=== PATIENT | male | born 1955 | race Caucasian/White ===

== ENCOUNTER 2017-10-24 05:43 | Inpatient (IN) | payer OTHER ==
[2017-10-24] VITALS (22 sets, daily range): BP systolic 104–172; BP diastolic 67–104; PULSE 63–92; RESP 14–24; TEMP 97.9–98.9; O2SAT 93–98
[~2017-10-24] VITALS: Ht 177.8 cm; Wt 112.7 kg
[~2017-10-24 05:43] MED LIST: AMLO10TA2 PO; ASPI1TAB57 PO; CPAP MASK; Glucometer; LEVO100T5 PO; LIPI20TA PO; METF500T PO; PANT40TA3 PO; TEST3GEL TOPICAL; TYLE325T PO; VENTAER INH; [UNRECOGNIZED DRUG - OTHER]; lancets
--- NOTE | 2017-10-24 05:59 | PD ---
HPI Chief Complaint: Chest Pain Time Seen by Provider: 05:51 Travel History International Travel<30 days: No Contact w/Intl Traveler<30days: No Traveled to known affect area: No History of Present Illness HPI 62-year-old male complains of chest pain. Patient states that the pain started 2 days ago. Patient states that the pain was intermittent 2 days ago and became constant since yesterday. Patient stated pain aching pain across anterior chest with radiation to the right shoulder. Patient states that the pain is worse with exertion 2 days ago however has been constant without changing since yesterday. Patient denies any nausea or diaphoresis. Patient denies palpitation. Patient denies any coughing congestion fever chills. Patient has history of CAD status post stent placement in 2004. Patient has history hypertension, diabetes, edema, hypothyroidism, Sandoval's esophagus, sleep apnea. Patient quit smoking 2004. Patient denies family history of heart disease. On a scale from 1-10 the pain is a 3. Patient took aspirin 81 mg last night. Patient had small amount of coffee this morning. Patient had normal nuclear stress test in 2013. PFSH Past Medical History Depression: Yes Heart Rhythm Problems: Yes Cancer: No Cardiac Catheterization: Yes Cardiovascular Problems: No High Cholesterol: Yes Diabetes: Yes Patient Takes Glucophage: Yes Diminished Hearing: No Endocrine: Yes Gastrointestinal Disorders: Yes (BARRETTS) Genitourinary: No Hepatitis: No Hiatal Hernia: No Hypertension: Yes Immune Disorder: No Musculoskeletal: No Neurologic: No Psychiatric: No Reproductive: Yes (vasectomy reversal) Respiratory: Yes (SLEEP APNEA) Immunizations Current: Yes Myocardial Infarction: Yes (2005) Thyroid Disease: Yes Past Surgical History Abdominal Surgery: No Cardiac Surgery: No Coronary Artery Bypass Graft: No Ear Surgery: No Endocrine Surgery: No Eye Surgery: No Genitourinary Surgery: Yes (REVERSE VASECTOMY) Oral Surgery: No Thoracic Surgery: No Tonsillectomy: Yes Social History Alcohol Use: Yes (one glass of wine per night) Tobacco Use: No Substance Use: No Allergies-Medications (Allergen,Severity, Reaction): Coded Allergies: latex (Unverified Allergy, Mild, Itching, 02/15/17) Reported Meds & Prescriptions Reported Meds & Active Scripts Active [CPAP mask] Use nightly [lancets] [Test strip] U BID Test in the morning before breakfast and two hours after biggest meal. [Glucometer] [Cpap mask] Provide Cpap mask with trap and tubing. Reported Testosterone Topical (Testosterone) 1 % Gel 12.5 Mg TOPICAL DAILY Levothyroxine (Levothyroxine Sodium) 100 Mcg Tab 100 Mcg PO DAILY Lipitor (Atorvastatin Calcium) 20 Mg Tab 20 Mg PO HS Tylenol (Acetaminophen) 325 Mg Tab 650 Mg PO Q6H Aspirin 81 (Aspirin) 81 Mg Tabdr 81 Mg PO DAILY Pantoprazole (Pantoprazole Sodium) 40 Mg Tab 40 Mg PO DAILY Metformin (Metformin HCl) 500 Mg Tab 500 Mg PO BIDPC With meals Ventolin Hfa 18 GM Inh (Albuterol Sulfate) 90 Mcg/Act Aer 1 Puff INH Q6HR PRN Amlodipine (Amlodipine Besylate) 10 Mg Tab 10 Mg PO DAILY Review of Systems General / Constitutional: No: Fever Eyes: No: Visual changes HENT: No: Headaches Cardiovascular: Positive: Chest Pain or Discomfort Respiratory: No: Shortness of Breath Gastrointestinal: No: Abdominal Pain Genitourinary: No: Dysuria Musculoskeletal: No: Pain Skin: No Rash Neurologic: No: Weakness Psychiatric: No: Depression Endocrine: No: Polydipsia Hematologic/Lymphatic: No: Easy Bruising Physical Exam Narrative GENERAL: Well-nourished, well-developed patient. SKIN: Focused skin assessment warm/dry. HEAD: Normocephalic. EYES: No scleral icterus. No injection or drainage. NECK: Supple, trachea midline. No JVD or lymphadenopathy. CARDIOVASCULAR: Regular rate and rhythm without murmurs, gallops, or rubs. RESPIRATORY: Breath sounds equal bilaterally. No accessory muscle use. GASTROINTESTINAL: Abdomen soft, non-tender, nondistended. MUSCULOSKELETAL: No cyanosis, or edema. BACK: Nontender without obvious deformity. No CVA tenderness. Neurologic exam normal. Data Data Last Documented VS Vital Signs Date Time Temp Pulse Resp B/P (MAP) Pulse Ox O2 Delivery O2 Flow Rate FiO2 10/24/17 05:54 24 97 Room Air 10/24/17 05:51 98.3 74 172/104 (126) Orders Orders Electrocardiogram (10/24/17 05:52) Complete Blood Count With Diff (10/24/17 05:52) Comprehensive Metabolic Panel (10/24/17 05:52) Creatine Kinase (Cpk) (10/24/17 05:52) Troponin I (10/24/17 05:52) Prothrombin Time / Inr (Pt) (10/24/17 05:52) Act Partial Throm Time (Ptt) (10/24/17 05:52) Chest, Single Ap (10/24/17 05:52) Iv Access Insert/Monitor (10/24/17 05:52) Ecg Monitoring (10/24/17 05:52) Oximetry (10/24/17 05:52) Aspirin Chew (Aspirin Chew) (10/24/17 06:00) Labs Laboratory Tests Test 10/24/17 05:50 White Blood Count 7.7 TH/MM3 Red Blood Count 5.09 MIL/MM3 Hemoglobin 16.3 GM/DL Hematocrit 46.9 % Mean Corpuscular Volume 92.1 FL Mean Corpuscular Hemoglobin 32.1 PG Mean Corpuscular Hemoglobin Concent 34.9 % Red Cell Distribution Width 13.7 % Platelet Count 190 TH/MM3 Mean Platelet Volume 10.0 FL Neutrophils (%) (Auto) 54.6 % Lymphocytes (%) (Auto) 32.6 % Monocytes (%) (Auto) 8.8 % Eosinophils (%) (Auto) 3.2 % Basophils (%) (Auto) 0.8 % Neutrophils # (Auto) 4.2 TH/MM3 Lymphocytes # (Auto) 2.5 TH/MM3 Monocytes # (Auto) 0.7 TH/MM3 Eosinophils # (Auto) 0.2 TH/MM3 Basophils # (Auto) 0.1 TH/MM3 CBC Comment DIFF FINAL Differential Comment Prothrombin Time 10.3 SEC Prothromb Time International Ratio 1.0 RATIO Activated Partial Thromboplast Time 24.5 SEC MDM Medical Decision Making Medical Screen Exam Complete: Yes Emergency Medical Condition: Yes Interpretation(s) EKG shows sinus rhythm nonspecific ST-T wave change. Last Impressions Chest X-Ray 10/24/17 0552 Signed Impressions: Service Date/Time: Tuesday, October 24, 2017 05:57 - CONCLUSION: 1. Minimal basilar atelectasis. No consolidation or significant effusion. Sunny Sanchez MD 6:28 AM. CBC within normal limits. Differential Diagnosis Differential diagnosis including angina, NM, PE, pneumothorax. Narrative Course 62-year-old male with chest pain. History of CAD status post stent placement. Aspirin 162 mg p.o. given. Luke Starks MD Oct 24, 2017 05:59
[2017-10-24] MEDS ORDERED: ASPIRIN 81 MG CHEW TAB CHEW ONE (06:00)
[2017-10-24 06:11] LABS: AUTOMATED NEUTROPHIL # 4.2 TH/MM3 (1.8-7.7); BASOPHIL # 0.1 TH/MM3 (0-0.2); BASOPHIL % 0.8 % (0.0-2.0); EOSINOPHIL # 0.2 TH/MM3 (0-0.4); EOSINOPHIL % 3.2 % (0.0-4.0); HEMATOCRIT 46.9 % (39.0-51.0); HEMOGLOBIN 16.3 GM/DL (13.0-17.0); LYMPH % 32.6 % (9.0-44.0); LYMPHOCYTE # 2.5 TH/MM3 (1.0-4.8); MEAN CELL VOLUME 92.1 FL (80.0-100.0); MEAN CORPUSCULAR HEMOGLOBIN 32.1 PG (27.0-34.0); MEAN CORPUSCULAR HGB CONC 34.9 % (32.0-36.0); MONO % 8.8 % (0.0-8.0); MONOCYTE # 0.7 TH/MM3 (0-0.9); NEUT % 54.6 % (16.0-70.0); PLATELET COUNT 190 TH/MM3 (150-450); RED BLOOD COUNT 5.09 MIL/MM3 (4.50-5.90); RED CELL DISTRIBUTION WIDTH 13.7 % (11.6-17.2); WHITE BLOOD COUNT 7.7 TH/MM3 (4.0-11.0)
--- NOTE | 2017-10-24 06:14 | RADRPT ---
EXAM DATE/TIME: 10/24/2017 05:57 [facility] COMPARISON: No previous studies available for comparison. INDICATIONS : Chest pain in middle of chest, belching, only slightly short of breath MEDICAL HISTORY : Cardiovascular disease. 95% blocked LAD SURGICAL HISTORY : Coronary artery stent. Cholecystectomy. ENCOUNTER: Initial ACUITY: 1 day PAIN SCORE: 7/10 LOCATION: Bilateral chest FINDINGS: A single view of the chest demonstrates the lungs to be symmetrically aerated without evidence of mas s, infiltrate or effusion. Mild basilar atelectasis. The cardiomediastinal contours are unremarkable. Osseous structures are intact. CONCLUSION: 1. Minimal basilar atelectasis. No consolidation or significant effusion. Sunny Sanchez MD on October 24, 2017 at 6:09 Board Certified Radiologist. This report was verified electronically.
[2017-10-24 06:22] LABS: PROTHROMBIN TIME - PATIENT 10.3 SEC (9.8-11.6)
[2017-10-24 06:33] LABS: AST (GOT) 25 U/L (15-37); BICARBONATE 28.3 MEQ/L (21.0-32.0); BLOOD UREA NITROGEN 17 MG/DL (7-18); CHLORIDE 104 MEQ/L (98-107); CREATININE 1.21 MG/DL (0.60-1.30); GLOMERULAR FILTRATION RATE 61 ML/MIN (>89); GLUCOSE,RANDOM 161 MG/DL (74-106); SODIUM (NA) 140 MEQ/L (136-145)
[2017-10-24 06:34] LABS: ALT (GPT) 44 U/L (12-78)
[2017-10-24 06:37] LABS: ALKALINE PHOSPHATASE 116 U/L (45-117); TOTAL BILIRUBIN ADULT 0.6 MG/DL (0.2-1.0); TOTAL PROTEIN 7.5 GM/DL (6.4-8.2); TROPONIN I 0.09 NG/ML (0.02-0.05)
[2017-10-24] MEDS ORDERED: HEPARIN-D5W 25,000 U/250 ML 250 ML IV PRN (07:00)
[2017-10-24] MEDS ORDERED: NITROGLYCERIN 2% OINT 1 GM PACKET TOPICAL ONE (07:00)
[2017-10-24] MEDS ORDERED: HEPARIN SODIUM - IV 10,000 UNITS/10 ML VIAL IV ONE (07:00)
[2017-10-24] MEDS ORDERED: SODIUM CHLOR 0.9% 1000 ML INJ 1,000 ML IV SCH (07:15)
--- NOTE | 2017-10-24 07:46 | PD.CONS ---
HPI Consult Requested By Primary Care Physician Stepan Le MD History of Present Illness 62-year-old male with a past medical history of CAD with LAD stent in 2004, HTN , HLD, DM, GERD/Sandoval's esophagus, [facility] on CPAP, hypothyroidism who presented for chest pain. The patient states he was chopping wood at his house on Tuesday, and while taking branches to the street he developed chest pain radiating down his right arm and shortness of breath. He reports that lately he has been having episodes with chest pain and shortness of breath lasting a few seconds with exertion. He states that for the past 2 days he has been having constant chest pain. He reports his original anginal equivalent in 2004 was just shortness of breath. He originally thought the pain was just gas from his Sandoval's esophagus but it did not improve after taking baking soda. The pain is currently relieved some after receiving aspirin, nitro patch, and heparin GTT in the ED. Initial EKG with no acute ischemic changes. Initial troponin 0.09. (Pa Melton) Review of Systems Negative except as stated in HPI (Pa Melton) Past Family Social History Allergies: Coded Allergies: latex (Unverified Allergy, Mild, Itching, 02/15/17) Past Medical History CAD with LAD stent in 2004, HTN, HLD, DM, GERD/Sandoval's esophagus, [facility] on CPAP , hypothyroidism Reported Medications Reported Meds & Active Scripts Active [CPAP mask] Use nightly [lancets] [Test strip] U BID Test in the morning before breakfast and two hours after biggest meal. [Glucometer] [Cpap mask] Provide Cpap mask with trap and tubing. Reported Testosterone Topical (Testosterone) 1 % Gel 12.5 Mg TOPICAL DAILY Levothyroxine (Levothyroxine Sodium) 100 Mcg Tab 100 Mcg PO DAILY Lipitor (Atorvastatin Calcium) 20 Mg Tab 20 Mg PO HS Tylenol (Acetaminophen) 325 Mg Tab 650 Mg PO Q6H Aspirin 81 (Aspirin) 81 Mg Tabdr 81 Mg PO DAILY Pantoprazole (Pantoprazole Sodium) 40 Mg Tab 40 Mg PO DAILY Metformin (Metformin HCl) 500 Mg Tab 500 Mg PO BIDPC With meals Ventolin Hfa 18 GM Inh (Albuterol Sulfate) 90 Mcg/Act Aer 1 Puff INH Q6HR PRN Amlodipine (Amlodipine Besylate) 10 Mg Tab 10 Mg PO DAILY Active Ordered Medications Current Medications Medications (Trade) Dose Ordered Sig/Jonathan Route Start Time Stop Time Status Last Admin Heparin Sodium/ Dextrose 250 ml @ 10 mls/hr TITRATE PRN IV 10/24/17 07:00 10/24/17 07:25 Sodium Chloride 1,000 ml @ 125 mls/hr Q8H IV 10/24/17 07:15 10/24/17 07:20 Family History Denies family history of heart disease Social History Quit smoking 2004 1 glass of wine per night (Pa Melton) Physical Exam Vital Signs Vital Signs Date Time Temp Pulse Resp B/P (MAP) Pulse Ox O2 Delivery O2 Flow Rate FiO2 10/24/17 07:14 86 20 147/94 (111) 97 Room Air 10/24/17 05:54 24 97 Room Air 10/24/17 05:51 98.3 74 24 172/104 (126) 97 Physical Exam GENERAL: Well-developed well-nourished. In no acute distress. NECK: No carotid bruits. No JVD. CARDIOVASCULAR: Regular rate and rhythm. No murmur appreciated. RESPIRATORY: No accessory muscle use. Clear to auscultation. Breath sounds equal bilaterally. MUSCULOSKELETAL: No clubbing or cyanosis. No edema. NEUROLOGICAL: Awake and alert. Normal speech. Laboratory Laboratory Tests Test 10/24/17 05:50 White Blood Count 7.7 Red Blood Count 5.09 Hemoglobin 16.3 Hematocrit 46.9 Mean Corpuscular Volume 92.1 Mean Corpuscular Hemoglobin 32.1 Mean Corpuscular Hemoglobin Concent 34.9 Red Cell Distribution Width 13.7 Platelet Count 190 Mean Platelet Volume 10.0 Neutrophils (%) (Auto) 54.6 Lymphocytes (%) (Auto) 32.6 Monocytes (%) (Auto) 8.8 Eosinophils (%) (Auto) 3.2 Basophils (%) (Auto) 0.8 Neutrophils # (Auto) 4.2 Lymphocytes # (Auto) 2.5 Monocytes # (Auto) 0.7 Eosinophils # (Auto) 0.2 Basophils # (Auto) 0.1 CBC Comment DIFF FINAL Differential Comment Prothrombin Time 10.3 Prothromb Time International Ratio 1.0 Activated Partial Thromboplast Time 24.5 Blood Urea Nitrogen 17 Creatinine 1.21 Random Glucose 161 Total Protein 7.5 Albumin 4.0 Calcium Level 9.0 Alkaline Phosphatase 116 Aspartate Amino Transf (AST/SGOT) 25 Alanine Aminotransferase (ALT/SGPT) 44 Total Bilirubin 0.6 Sodium Level 140 Potassium Level 3.9 Chloride Level 104 Carbon Dioxide Level 28.3 Anion Gap 8 Estimat Glomerular Filtration Rate 61 Total Creatine Kinase 334 Creatine Kinase MB 3.1 Creatine Kinase MB % 0.9 Troponin I 0.09 (Pa Melton) Result Diagram: 10/24/17 0550 10/24/17 0550 Imaging Last Impressions Chest X-Ray 10/24/17 0552 Signed Impressions: Service Date/Time: Tuesday, October 24, 2017 05:57 - CONCLUSION: 1. Minimal basilar atelectasis. No consolidation or significant effusion. Sunny Sanchez MD (Pa Melton) Assessment and Plan Assessment and Plan 62-year-old male with a past medical history of CAD with LAD stent in 2004, HTN , HLD, DM, GERD/Sandoval's esophagus, [facility] on CPAP, hypothyroidism who presented for chest pain. The patient states he was chopping wood at his house on Tuesday, and while taking branches to the street he developed chest pain and shortness of breath. He reports that lately he has been having episodes with chest pain and shortness of breath lasting a few seconds with exertion. He states that for the past 2 days he has been having constant chest pain. The pain is currently relieved some after receiving aspirin, nitro patch, and heparin GTT in the ED. Initial EKG with no acute ischemic changes. Initial troponin 0.09. NSTEMI: History of CAD with symptoms suggesting angina and elevation of troponin. Keep n.p.o. and plan for cardiac catheterization today. On heparin GTT. (Pa Melton) Assessment and Plan positive cardiac biomarkers high pretest likelihood of disease with risk factors and suggestive symptoms NPO C today (Edi Weiss MD) Pa Melton Oct 24, 2017 07:46 Edi Weiss MD Oct 24, 2017 08:11
[2017-10-24] MEDS ORDERED: ALBI1INJ SQ (08:27)
--- NOTE | 2017-10-24 08:49 | HHI.HP ---
HPI Service [facility] Hospitalists Primary Care Physician Stepan Le MD Admission Diagnosis NSTEMI Chief Complaint: Chest pain Travel History International Travel<30 Days: No Contact w/Intl Traveler <30 Da: No Traveled to Known Affected Are: No History of Present Illness Mr. Street is a 62 y/o WM with HTN, Hyperlipidemia, hx of CAD with LAD stent in 2004, Diabetes mellitus, GERD/Sandoval's esophagus, [facility] on CPAP, and hypothyroidism who presented to the ED at [facility] on 10/24/17 with complaints of chest pain. He reports that lately he has been having episodes intermittently of chest pain and shortness of breath with exertion which typically last a few seconds. The reports that he was chopping wood at his house on Tuesday, and while taking branches to the street, he developed chest pain radiating down his right arm with associated SOB. Since then he has been having constant chest pain. He reports that in 2004 when he had his cardiac cath and stent placement he was just shortness of breath at that time. He originally thought the pain was just gas but it did not improve after taking baking soda. The pain is currently relieved some after receiving aspirin, nitro patch, and heparin GTT in the ED. Initial EKG with no acute ischemic changes. Initial troponin 0.09. Pt has been seen by Cardiology and is planned for [facility] today. Review of Systems Constitutional: DENIES: Fever, Chills Respiratory: COMPLAINS OF: Shortness of breath, DENIES: Cough Cardiovascular: COMPLAINS OF: Chest pain, DENIES: Palpitations, Dyspnea on Exertion, Lower Extremity Edema Gastrointestinal: DENIES: Abdominal pain, Nausea, Vomiting Genitourinary: DENIES: Hematuria, Dysuria Musculoskeletal: DENIES: Neck pain Integumentary: DENIES: Rash Neurologic: DENIES: Headache Psychiatric: DENIES: Confusion Past Family Social History Past Medical History CAD with LAD stent in 2004 HTN Hyperlipidemia Diabetes Mellitus GERD/Sandoval's esophagus [facility] on CPAP Hypothyroidism Past Surgical History Cholecystectomy Vasectomy Tonsillectomy [facility] in 2004 Reported Medications Tanzeum 4-Pack Inj (Albiglutide) 30 Mg Pfpen 30 Mg SQ Q7D Testosterone Topical (Testosterone) 1 % Gel 12.5 Mg TOPICAL DAILY Levothyroxine (Levothyroxine Sodium) 100 Mcg Tab 100 Mcg PO DAILY Lipitor (Atorvastatin Calcium) 20 Mg Tab 20 Mg PO HS Tylenol (Acetaminophen) 325 Mg Tab 650 Mg PO Q6H Aspirin 81 (Aspirin) 81 Mg Tabdr 81 Mg PO DAILY Pantoprazole (Pantoprazole Sodium) 40 Mg Tab 40 Mg PO DAILY Metformin (Metformin HCl) 500 Mg Tab 500 Mg PO BIDPC With meals Ventolin Hfa 18 GM Inh (Albuterol Sulfate) 90 Mcg/Act Aer 1 Puff INH Q6HR PRN Amlodipine (Amlodipine Besylate) 10 Mg Tab 10 Mg PO DAILY Allergies: Coded Allergies: latex (Unverified Allergy, Mild, Itching, 02/15/17) Family History Noncontributory Social History Hx of tobacco use, quit in 2001 Occasional social alcohol use Denies any illicit drug use Pt works as a salesman at [employer] Physical Exam Vital Signs Vital Signs Date Time Temp Pulse Resp B/P (MAP) Pulse Ox O2 Delivery O2 Flow Rate FiO2 10/24/17 07:14 86 20 147/94 (111) 97 Room Air 10/24/17 05:54 24 97 Room Air 10/24/17 05:51 98.3 74 24 172/104 (126) 97 Physical Exam GENERAL: This is a well-nourished, well-developed patient, in no apparent distress. HEENT: Atraumatic. Normocephalic. No temporal or scalp tenderness. No scleral icterus. Airway patent. NECK: Trachea midline, supple, nontender. CARDIO: Regular. RESP: CTA bilaterally. No wheezes, rales, or rhonchi. ABD: +BS, soft, non-tender, nondistended. EXT: Extremities without clubbing, cyanosis, or edema. NEURO: Awake and alert. Motor and sensory grossly within normal limits. Normal speech. Laboratory Laboratory Tests Test 10/24/17 05:50 White Blood Count 7.7 Red Blood Count 5.09 Hemoglobin 16.3 Hematocrit 46.9 Mean Corpuscular Volume 92.1 Mean Corpuscular Hemoglobin 32.1 Mean Corpuscular Hemoglobin Concent 34.9 Red Cell Distribution Width 13.7 Platelet Count 190 Mean Platelet Volume 10.0 Neutrophils (%) (Auto) 54.6 Lymphocytes (%) (Auto) 32.6 Monocytes (%) (Auto) 8.8 Eosinophils (%) (Auto) 3.2 Basophils (%) (Auto) 0.8 Neutrophils # (Auto) 4.2 Lymphocytes # (Auto) 2.5 Monocytes # (Auto) 0.7 Eosinophils # (Auto) 0.2 Basophils # (Auto) 0.1 CBC Comment DIFF FINAL Differential Comment Prothrombin Time 10.3 Prothromb Time International Ratio 1.0 Activated Partial Thromboplast Time 24.5 Blood Urea Nitrogen 17 Creatinine 1.21 Random Glucose 161 Total Protein 7.5 Albumin 4.0 Calcium Level 9.0 Alkaline Phosphatase 116 Aspartate Amino Transf (AST/SGOT) 25 Alanine Aminotransferase (ALT/SGPT) 44 Total Bilirubin 0.6 Sodium Level 140 Potassium Level 3.9 Chloride Level 104 Carbon Dioxide Level 28.3 Anion Gap 8 Estimat Glomerular Filtration Rate 61 Total Creatine Kinase 334 Creatine Kinase MB 3.1 Creatine Kinase MB % 0.9 Troponin I 0.09 Result Diagram: 10/24/1750 10/24/1750 Imaging Last Impressions Chest X-Ray 10/24/1752 Signed Impressions: Service Date/Time: Tuesday, October 24, 2017 05:57 - CONCLUSION: 1. Minimal basilar atelectasis. No consolidation or significant effusion. Sunny Sanchez MD Caprini VTE Risk Assessment Caprini VTE Risk Assessment: Mod/High Risk (score >= 2) Caprini Risk Assessment Model Point Value = 1 Point Value = 2 Point Value = 3 Point Value = 5 Age 41-60 Minor surgery BMI > 25 kg/m2 Swollen legs Varicose veins or History of unexplained or recurrent spontaneous Oral contraceptives or hormone replacement Sepsis (< 1 month) Serious lung disease, including pneumonia (< 1 month) Abnormal pulmonary function Acute myocardial infarction Congestive heart failure (< 1 month) History of inflammatory bowel disease Medical patient at bed rest Age 61-74 Arthroscopic surgery Major open surgery (> 45 min) Laparoscopic surgery (> 45 min) Malignancy Confined to bed (> 72 hours) Immobilizing plaster cast Central venous access Age >= 75 History of VTE Family history of VTE Factor V Leiden Prothrombin [id number] Lupus anticoagulant Anticardiolipin antibodies Elevated serum homocysteine Heparin-induced thrombocytopenia Other congenital or acquired thrombophilia Stroke (< 1 month) Elective arthroplasty Hip, pelvis, or leg fracture Acute spinal cord injury (< 1 month) Prophylaxis Regimen Total Risk Factor Score Risk Level Prophylaxis Regimen 0-1 Low Early ambulation 2 Moderate Order ONE of the following: *Sequential Compression Device (SCD) *Heparin 5000 units SQ BID 3-4 Higher Order ONE of the following medications: *Heparin 5000 units SQ TID *Enoxaparin/Lovenox 40 mg SQ daily (WT < 150 kg, CrCl > 30 mL/min) *Enoxaparin/Lovenox 30 mg SQ daily (WT < 150 kg, CrCl > 10-29 mL/min) *Enoxaparin/Lovenox 30 mg SQ BID (WT < 150 kg, CrCl > 30 mL/min) AND/OR *Sequential Compression Device (SCD) 5 or more Highest Order ONE of the following medications: *Heparin 5000 units SQ TID (Preferred with Epidurals) *Enoxaparin/Lovenox 40 mg SQ daily (WT < 150 kg, CrCl > 30 mL/min) *Enoxaparin/Lovenox 30 mg SQ daily (WT < 150 kg, CrCl > 10-29 mL/min) *Enoxaparin/Lovenox 30 mg SQ BID (WT < 150 kg, CrCl > 30 mL/min) AND *Sequential Compression Device (SCD) Assessment and Plan Problem List: (1) Chest pain ICD Codes: R07.9 - Chest pain, unspecified Status: Acute Plan: - Pt is a 62 y/o WM with HTN, Hyperlipidemia, hx of CAD with LAD stent in 2004, Diabetes mellitus, GERD/Sandoval's esophagus, [facility] on CPAP, and hypothyroidism who presented to the ED at [facility] on 10/24/17 with complaints of chest pain. - He reports that lately he has been having episodes intermittently of chest pain and shortness of breath with exertion which typically last a few seconds. - His last LH was in 2004 in [place] and he had stent to LAD placed at that time. - His last stress test was in 2013 and was negative. - The pain is currently relieved some after receiving aspirin, nitro patch, and heparin GTT in the ED. - Initial EKG with no acute ischemic changes. Initial troponin 0.09. - Pt has been seen by Cardiology and is planned for [facility] today. - Cont. Heparin Gtt at this time - Resume home meds, including Norvasc, Atorvastatin - Telemetry - 2D echo is ordered - Supportive care (2) Hx of coronary artery disease ICD Codes: Z86.79 - Personal history of other diseases of the circulatory system Status: Chronic Plan: - See above (3) HTN (hypertension) ICD Codes: I10 - Essential (primary) hypertension Status: Chronic Plan: - Home meds resumed (4) Hyperlipidemia ICD Codes: E78.5 - Hyperlipidemia Status: Chronic Plan: - Cont. home meds (5) Hypothyroidism ICD Codes: E03.9 - Hypothyroidism Status: Acute Plan: - Cont. home meds (6) Diabetes ICD Codes: E11.9 - Diabetes Status: Chronic Plan: - Hold home meds - NovoLog SSI - Accu checks (7) Sleep apnea ICD Codes: G47.30 - Sleep apnea Status: Chronic Plan: - Pt can use mask from home. (8) Barretts esophagus ICD Codes: K22.70 - Barretts esophagus Status: Chronic Plan: - Cont. PPI Assessment and Plan Patient examined. Assessment and plan formulated with Rosario Rice PA-C. I agree with the above. Case d/w Dr. Weiss (10/24) Pt had DERIK placed in proximal RCA. Pt's symptoms improved. If pt remains stable overnight, then anticipate d/c to home 10/25 Physician Certification 2 Midnight Certification Type: Admission for Inpatient Services Order for Inpatient Services The services are ordered in accordance with Medicare regulations or non- Medicare payer requirements, as applicable. In the case of services not specified as inpatient-only, they are appropriately provided as inpatient services in accordance with the 2-midnight benchmark. Estimated LOS (days): 2 2 days is the estimated time the patient will need to remain in the hospital, assuming treatment plan goals are met and no additional complications. Post-Hospital Plan: Home Problem Qualifiers (1) Diabetes: Rosario Rice Oct 24, 2017 08:49 Gabriel Mora DO Oct 25, 2017 06:07
[2017-10-24] MEDS: LEVOTHYROXINE SODIUM 100 MCG TAB PO SCH (09:00)
[2017-10-24] MEDS: PANTOPRAZOLE SOD 40 MG DELAYED RELEASE TAB PO SCH ×2 (09:00→21:57)
[2017-10-24] MEDS ORDERED: HEPARIN SODIUM - IV 10,000 UNITS/10 ML VIAL ONE (10:18)
[2017-10-24] MEDS ORDERED: HEPARIN-NS/PF FLUSH BAG 2,000 ML IV FLUSH ONE (10:18)
[2017-10-24] MEDS ORDERED: NITROGLYCERIN INJ 5 ML ONE (10:18)
[2017-10-24] MEDS ORDERED: MIDAZOLAM HCL 2 MG/2 ML VIAL ONE ×2 (10:18→11:02)
[2017-10-24] MEDS ORDERED: LIDOCAINE HCL 1% PF 30 ML VIAL ONE (10:23)
[2017-10-24] MEDS ORDERED: BIVALIRUDIN 250 MG VIAL ONE (10:58)
[2017-10-24] MEDS ORDERED: CLOPIDOGREL 300 MG TAB ONE (11:18)
--- NOTE | 2017-10-24 11:23 | CATHPROC ---
[facility] HIS Report Study Information Study Number Admission Scheduled Start Study Start [id number] Oct 24 2017 7:01AM 10/24/2017 Oct 24 2017 10:13AM [place] Service Cardiac Catheterization Admit Source Facility Department Other [facility] - [facility] Physician and Clinical Staff Initial Edi Bar Sample Processor Donna Desai,MARGARITA Other cathlab, cathlab Recorder Andreina Gooden,COMMERCIAL UNDERWRITER TECH2 Scrub Thanh Cruz RCIS(BS) Procedures Performed Procedure Location (Site) Vessel Name Coronary Angiograms LCA Left Coronary Coronary Angiograms RCA Right Coronary Drug Eluting Inflatio RCA Prox Right Coronary L Heart Cath PTCA RCA Prox Right Coronary Wire insertion Radial (right) Radial Art. Equipment Time Photographic Press Screwmaker Description Size Mfg Part Number Used/Scraped TRANSDUCER, KEYLA [id number] 10:24 [employer]ox CESAR * Used W/STOCKCOCK *[id number] *[id number] *[id number] 10:24 Rise Art PACK, CCL CUSTOM * Used *[id number] 10:24 Rise Art SUPPORT, ARTERIAL ADULT [id number] *[id number] Used [id number] 10:24 [employer] PACER PEN, SKIN DUAL W/ RULER * Used *[id number] 11:02 MEDTRONIC BALLOON, 2.5 X 15MM EUPHORA 15MM Used *[id number] 10:52 MEDTRONIC JR 5.0 DXTERITY CATHETER fr 5 [id number] Used [id number] 11:09 MEDTRONIC STENT, 3.0 18MM RAHAT 3.0 18MM Used *[id number] 11:05 [employer] 30 SERGIO INDEFLATOR Used *[id number] BAND, RADIAL COMPRESSION TR [id number] 11:13 [employer] MEDICAL 29CM Used LARGE 29 *[id number] SHEATH, FR6 RADIAL PRELUDE 10:24 [employer] FR 6 [id number] Used EASE 11CM [id number] 10:24 [employer] WIRE, EXCHANGE 260CM 3MMJ 260CM Used *[id number] 10:24 NYCOMED OMNIPAQUE, 350 MG, 150ML 150ML [id number] Used [id number] 10:24 HAAS MEDICAL BLANKET,WARM AIR CCL * Used *[id number] WIRE, RUNTHROUGH NS FLOPPY [id number] 10:59 TERUMO MEDICAL 180CM Used .014 180CM *[id number] Equipment Model, Serial, Lot Number and Expiration Data Description Model Number Serial Number Lot Number Expiration Date JR 5.0 DXTERITY CATHETER [id number] 01-07-2020 STENT, 3.0 18MM RAHAT [id number] 04-04-2019 History: Current Medications Medication Dosage/Unit Route Frequency Last Date/Time Taken ASA Synthroid LIPITOR Glucophage Albuterol History: Allergies Allergy Reaction latex Itching History: Risk Factors Family History of Hypertension Dyslipidemia Previous [place] Previous Heart Failure Premature CAD Yes Yes Yes No No Prior Valve Prior PCI Prior PCIDate Prior CABG Surgery No Yes 07/04/2004 No Cerebrovascular Peripheral Artery Chronic Lung On Dialysis Diabetes Diabetes Therapy Disease Disease Disease No No No No Yes Oral History: Other Disease Selection Items CAD Gerd History: [place]/CV Data Previous Cath Date 07/04/2004 History: Other Current Smoker Method Quit Packs a Day Years Used Pack Years No Cigarettes 16 Years Ago 1 25 25 Labs Hgb (g/dl) Hct (%) RBC (MIL/MM3) WBC (l/cumm) Platelets (thousands) 11.60-17.00 35.00-51.00 4.00-5.90 4.00-11.00 150.00-450.00 16.3 16.9 5 7.7 190 Glucose (mg/dl) BUN (mg/dl) Creatinine (mg/dl) BUN:Creatinine (1:x) 74.00-106.00 7.00-18.00 0.50-1.30 10.00-20.00 161 17 1.2 14.2 Na (meq/l) K (meq/l) Cl (meq/l) CO2 (mmol/L) Ca (mg/dl) 136.00-145.00 3.50-5.10 98.00-107.00 21.00-32.00 8.50-10.10 140 3.9 104 28.3 9 PT (sec) PTT (sec) INR (PTT:PT) 9.80-11.60 24.30-30.10 0.90-1.10 10.3 24.5 1 Troponin I (ng/ml) CPK-MB (ng/ML) 0.02-0.05 0.50-3.60 0.09 3.1 Medication Medication Total Dose (Bolus/Oral) Medication Total Dosage/Unit 1% XYLOCAINE 5 mL ANGIOMAX BOLUS 17 mL FENTANYL 50 mcg HEPARIN 5000 units NTG (IC) 200 mcg OXYGEN 2 l/min PLAVIX 600 mg VERSED 3 mg Medications (Bolus/Oral) Medication Time Given Dosage/Unit Administered By Reason OXYGEN 10/24/2017 10:34:39 AM 2 l/min Donna Desai 2 l/min OXYGEN given in lab by Donna Desai RN via Nasal. Ordered by Edi Weiss. VERSED 10/24/2017 10:39:35 AM 2 mg Donna Desai 2 mg VERSED given in lab by Donna Desai RN in Left Antecubital via Peripheral IV. Ordered by Edi March. FENTANYL 10/24/2017 10:40:00 AM 50 mcg Donna Desai 50 mcg FENTANYL given in lab by Donna Desai RN in Left Antecubital via Peripheral IV. Ordered by Edi Weiss. 1% XYLOCAINE 10/24/2017 10:51:13 AM 5 mL Edi Weiss 5 mL 1% XYLOCAINE given in lab by Edi Weiss in Right Radial via Subcutaneous. Ordered by Edi Weiss. NTG (IC) 10/24/2017 10:52:07 AM 200 mcg Edi Weiss 200 mcg NTG (IC) given in lab by Edi Weiss in Right Radial via Central IV. Ordered by Ron Weiss. HEPARIN 10/24/2017 10:52:46 AM 5000 units Donna Desai 5000 units HEPARIN given in lab by Donna Desai RN in Right Antecubital via Peripheral IV. Ordere d by Edi Weiss. ANGIOMAX BOLUS 10/24/2017 11:02:07 AM 17 mL Donna Desai 17 mL ANGIOMAX BOLUS given in lab by Donna Desai RN in Right Hand via Peripheral IV. Ordered by Edi Weiss. VERSED 10/24/2017 11:08:00 AM 1 mg Donna Desai 1 mg VERSED given in lab by Donna Desai RN in Left Antecubital via Peripheral IV. Ordered by Edi March. PLAVIX 10/24/2017 11:14:11 AM 600 mg Donna Desai 600 mg PLAVIX given in lab by Donna Desai RN via Oral. Ordered by Edi Weiss. Medication (Drip) Medication Time Given Dosage/Unit Concentration/Unit Diluent (ml) Solution ANGIOMAX DRIP 10/24/2017 11:03:48 AM 1.75 mg/kg/hr 250 mg 50 NaCl .9 1.75 mg/kg/hr ANGIOMAX DRIP given in lab by Donna Desai, RN in Right Antecubital via Peripheral I V. Pump/Drip Flow = 38.5 ml/hr using NaCl .9 with a concentration of 250 mg in 50 ml. Ordered by Edi Weiss. IV Solutions 10/24/2017 10:13:26 AM 0 mL (IV) 500 NaCl .9 IV Solutions given in lab by Donna Desai RN in Right Antecubital via Peripheral IV. Pump/Drip Fl ow = 20 ml/hr using NaCl .9. Ordered by Edi Weiss. Initial Case Assessment Cardiovascular HR NIBP Chest Pain 47 107/60 5 Edema Present Skin color Skin None Normal Warm Dry Circulatory - Right Pulses Dorsalis Pedis Femoral Radial 1 3 3 Scale (0,1,2,3,4,d) Circulatory - Left Pulses Dorsalis Pedis Femoral Radial 1 3 Scale (0,1,2,3,4,d) Neurological State Oriented to time-place- Alert Moves all extremities person Respiration - General Respiration Rate SpO2 (%) (B/min) 18 95 Final Case Assessment Cardiovascular HR NIBP Chest Pain 66 104/58 0 Edema Present Skin color Skin None Normal Warm Dry Circulatory - Right Pulses Dorsalis Pedis Femoral Radial 1 3 3 Scale (0,1,2,3,4,d) Circulatory - Left Pulses Dorsalis Pedis Femoral Radial 1 3 Scale (0,1,2,3,4,d) Neurological State Oriented to time-place- Alert Moves all extremities person Respiration - General Respiration Rate SpO2 (%) (B/min) 14 95 Chronological Log Time Study Chronological Log 10:13:15 Patient arrived via Bed. 10:13:16 Patient Name, D.O.B, / Armband Verified By R.N. 10:13:16 Consent signed by the physician and the patient and verified by the [facility] [facility] staff. 10:13:17 Pre-op and post- op instructions given; patient acknowledges understanding of instructions. 10:13:17 Verbal Stimulation=2 Physical Stimulation=2 Airway=2 Respiration=2 TOTAL=8. (0=absent, 1=li mited, 2=present) 10:13:18 Presedation assessment performed by Paste Mixer RN. 10:13:19 Allens test performed on the right radial and ulnar artery. 10:13:20 Immediate Presedation assesment performed by physician. 10:13:21 Patient has been NPO for More than 6Hrs. 10::23 NO Skin Breakdown- 10::24 Patient Warmer Placed on the Table. 10::24 Betty Prominences Protected IV Solutions given in lab by Donna Desai, RN in Right Antecubital via Peripheral IV. Pump/D rip Flow = 20 ml/hr 10:: using NaCl .9. Ordered by Edi Weiss. 10:: A # 20 IV was noted in the Antecubital (right). Grade = 0 10:: A # 20 IV was noted in the Antecubital (left). Grade = 0 10:: History and physical on the chart or being dictated. Vitals capture started with the following parameters, Patient=Adult, Interval=5 min, Initial Pr jvlhih=129 mmHg, ::39 Deflation Rate=5 mmHg, Cuff placed on Left Arm 10:25:29 HR=47 bpm, NLYL=518/60 mmhg, SpO2=95.0 %, Resp=18 B/min, Pain=0, Saima=10, Cho=2 Assessment: Initial Case, HR=47 BPM, OSOA=332/60 mmhg, Chest Pain=5, Edema=None, Color=Normal, Skin = Warm, Dry Right Pulses: Eric Ped=1, Femoral=3, Radial=3 10:26:12 Left Pulses: Eric Ped=1, Femoral=3 Neurological: State=Alert, Ox3, BUENO Respiration: Resp=18 B/min, SpO2=95 % 10::34 Reference ECG taken 10::26 HR=65 bpm, EUNB=560/69 mmhg, SpO2=95 %, Resp=20 B/min, Pain=0, Saima=10, Cho=2 10:30:40 Right Radial and groin(s) prepped with 2% chlorhexidine, and draped after a 3 min. waiting time. ::39 Pressure channel 1 zeroed. :34:39 2 l/min OXYGEN given in lab by Donna Desai, MARGARITA via Nasal. Ordered by Edi Weiss. 10:35:27 HR=53 bpm, CEKL=713/64 mmhg, SpO2=99 %, Resp=18 B/min, Pain=0, Saima=10, Cho=2 10:39:35 2 mg VERSED given in lab by Donna Desai, RN in Left Antecubital via Peripheral IV. Orde red by Edi Weiss. 10:40:00 50 mcg FENTANYL given in lab by Donna Desai, RN in Left Antecubital via Peripheral IV. Ordered by Edi Weiss. 10:40:26 HR=51 bpm, IVMQ=734/64 mmhg, SpO2=99 %, Resp=13 B/min, Pain=0, Saima=10, Cho=2 10:45:29 HR=47 bpm, NTQJ=283/60 mmhg, SpO2=96 %, Resp=13 B/min, Pain=0, Saima=10, Cho=2 Time Out. Correct patient, correct procedure, correct physician, power injector not loaded with contrast with surgical 10:50:24 team present. Time Out Concurred by MD and individual staff in procedure. 10:50:30 HR=63 bpm, MBZE=176/62 mmhg, SpO2=92 %, Resp=18 B/min, Pain=0, Saima=10, Cho=2 10:50:55 Case Start 10:51:13 5 mL 1% XYLOCAINE given in lab by Edi Weiss in Right Radial via Subcutaneous. Ordered by Edi Weiss. 10:52:00 Access site was Radial Artery. 10:52:00 Access site was Radial Artery. A SHEATH, FR6 RADIAL PRELUDE EASE 11CM FR 6 was advanced into the Radial (right) using the Vlad fied Seldinger 10:52:06 technique. 10:52:07 200 mcg NTG (IC) given in lab by Edi Weiss in Right Radial via Central IV. Ordered by Edi Weiss. 5000 units HEPARIN given in lab by Donna Desai, RN in Right Antecubital via Peripheral IV. Ordered by Abhishek 10:52:46 Edi. A JR 5.0 DXTERITY CATHETER fr 5 was advanced over a wire. OMNIPAQUE, 350 MG, 150ML 150ML was us ed for 10:53:31 injections. Recorded Pressure: Ao, HR=67, Condition=Condition 1 10:54:11 (Aorta) Ao 106/73/88 10:54:25 The RCA was injected and visualized at various angles. OMNIPAQUE, 350 MG, 150ML 150ML used . After removing the current catheter a JL 3.5 INFINITI CATHETER FR 6 was advanced over a WIRE, E XCHANGE 260CM 10:54:50 3MMJ 260CM. 10:55:29 HR=64 bpm, STTC=222/63 mmhg, SpO2=93 %, Resp=16 B/min, Pain=0, Saima=10, Cho=2 10:56:13 The LCA was injected and visualized at various angles. OMNIPAQUE, 350 MG, 150ML 150ML used . After removing the current catheter a AL .75 GUIDE CATHETER FR 6 was advanced over a WIRE, EXCH KEI 260CM 10:59:15 3MMJ 260CM. 11:00:28 HR=61 bpm, UDXZ=836/59 mmhg, SpO2=93 %, Resp=18 B/min, Pain=0, Saima=10, Cho=2 11:01:16 A WIRE, RUNTHROUGH NS FLOPPY .014 180CM 180CM was inserted via Radial (right). 17 mL ANGIOMAX BOLUS given in lab by Donna Desai, MARGARITA in Right Hand via Peripheral IV. Order ed by Abhishek, 11:02:07 Edi. A BALLOON, 2.5 X 15MM EUPHORA 15MM was inserted over WIRE, RUNTHROUGH NS FLOPPY .014 180CM 180C M via 11:03:08 the RCA Prox. 1.75 mg/kg/hr ANGIOMAX DRIP given in lab by Donna Desai, RN in Right Antecubital via Periph eral IV. Pump/Drip 11:03:48 Flow = 38.5 ml/hr using NaCl .9 with a concentration of 250 mg in 50 ml. Ordered by Sheng Weiss. A BALLOON, 2.5 X 15MM EUPHORA 15MM over a WIRE, RUNTHROUGH NS FLOPPY .014 180CM 180CM in the RC A 11:04:44 Prox was inflated using a 30 SERGIO INDEFLATOR at 10 sergio for 20 sec. 11:05:30 HR=65 bpm, CVJR=925/63 mmhg, SpO2=95 %, Resp=18 B/min, Pain=0, Saima=10, Cho=2 11:06:11 Balloon Removed. 11:08:00 1 mg VERSED given in lab by Donna Desai, RN in Left Antecubital via Peripheral IV. Orde red by Edi Weiss. A STENT, 3.0 18MM RAHAT 3.0 18MM was advanced through a AL .75 GUIDE CATHETER FR 6 over a WIRE, 11:09:16 RUNTHROUGH NS FLOPPY .014 180CM 180CM. A STENT, 3.0 18MM RAHAT 3.0 18MM was deployed using a 30 SERGIO INDEFLATOR at 16 atmospheres for 15 seconds in 11:10:08 the RCA Prox. 11:10:29 HR=66 bpm, ERWT=425/61 mmhg, SpO2=95 %, Resp=18 B/min, Pain=0, Saima=10, Cho=2 11:10:37 Delivery device removed 11:11:33 Wire removed 11:11:44 A WIRE, EXCHANGE 260CM 3MMJ 260CM was inserted via Radial (right). 11:11:51 Catheter was removed PCI QA completed: Pre-Bill - 0, Post Bill - 3, Type - C, Length - 15 mm, Morphology - ~MORPHOLO GY~, Indications - 11:11:59 Lesion > 50 non-stem, Pre-Stenosis - 99% and Post Stenosis - 0%. 11:12:01 PCI QA obtained from [employer] 11:12:02 Case End 11:12:56 Catheter(s) removed without difficulty Radial Compression Device Used. 12 mLs of air placed in BAND, RADIAL COMPRESSION TR LARGE 29 29 CM. Affected 11:13:01 hand 96 % O2 saturation. 11:13:24 No case complications noted. 11:13:26 Cine recording checked. 11:14:11 600 mg PLAVIX given in lab by Donna Desai, RN via Oral. Ordered by Edi Weiss. 11:15:28 HR=66 bpm, PHIH=423/58 mmhg, SpO2=95 %, Resp=14 B/min, Pain=0, Saima=10, Cho=2 Assessment: Final Case, HR=66 BPM, AUWA=301/58 mmhg, Chest Pain=0, Edema=None, Color=Normal, Sk in = Warm, Dry Right Pulses: Eric Ped=1, Femoral=3, Radial=3 11:16:46 Left Pulses: Eric Ped=1, Femoral=3 Neurological: State=Alert, Ox3, BUENO Respiration: Resp=14 B/min, SpO2=95 % 11:17:14 Vitals capture stopped. 11:22:31 Bedside Report will be given. 11:22:35 Implantable Device card placed in patient's chart. 11:22:37 A Left Heart Cath was performed. 11:22:38 Patient moved to [facility] End Study - Contrast Media Used In Study Contrast Total Opened (mL) Total Used (mL) Total Wasted (mL) Omnipaque 55 55 0 End Study - Maximum Contrast Load Max Contrast Load (mL) 458.3 End Study - Radiation Exposure Fluoro Time (minutes) 5.4 End Study - Patient Disposition Complications Transferred To Interventional Outcome No Telemetry Bed successful
[2017-10-24] MEDS ORDERED: BACITRACIN OINT 0.9 GM PKT TOP ONE (11:30)
[2017-10-24] MEDS ORDERED: MISC INFORMATION XX ONE (11:30)
[2017-10-24] MEDS ORDERED: CLOPIDOGREL 300 MG TAB PO ONE (11:30)
[2017-10-24] MEDS ORDERED: LIDOCAINE 2% JELLY 30 ML TUBE TOP PRN (11:30)
[2017-10-24] MEDS ORDERED: GLUCAGON 1 MG/ML VIAL OTHER PRN (11:45)
[2017-10-24] MEDS ORDERED: DEXTROSE 50% IN WATER 50 ML VIAL(D50) IV PUSH PRN (11:45)
--- NOTE | 2017-10-24 11:51 | MA ---
cc: Edi Weiss MD DATE: 10/24/2017 DATE OF PROCEDURE: 10/24/2014. INDICATION: Non-ST elevation myocardial infarction. PROCEDURE PERFORMED: 1. Fluoroscopy with interpretation. 2. Coronary angiography. 3. Percutaneous intervention with drug-eluting stent to the proximal right coronary artery. METHOD: Risks, benefits, and alternatives were discussed with the patient. The patient understood and consented to the procedure. DESCRIPTION OF PROCEDURE: The patient was brought into the cardiac catheterization lab, placed on the catheterization table. The right wrist was prepped and draped in the usual sterile fashion. The right wrist was anesthetized with 2% lidocaine. The right radial artery was cannulated. A 6-Burkinan, 7-cm sheath was placed without difficulty. CORONARY ANGIOGRAPHY: 1. Left main coronary is widely patent. 2. Left anterior descending coronary artery has a stent present in the proximal mid-segment which is widely patent. Left anterior descending coronary has mild luminal irregularities. 3. Left circumflex is a large caliber size vessel, but nondominant. The left circumflex gives rise to several obtuse marginal branches. The most distal obtuse marginal branch of the subbranch has about a 40-50% stenosis at the bifurcation. There are otherwise minor luminal irregularities. 4. Right coronary artery is a dominant vessel, giving rise to a posterior descending branch. The right coronary artery is 99% blocked in the proximal segment with CARMITA-0 flow distally. PERCUTANEOUS INTERVENTION: The right coronary was selectively engaged with a 6-Burkinan, AL 0.75 guide catheter. A 0.014-inch, 180-cm [place] Runthrough wire was navigated down the distal posterior descending branch. A 2.5 x 15 mm RX Euphora balloon was advanced to the proximal segment and deployed. Repeat angiography showed mosque of CARMITA-3 flow, but severe residual stenosis. A 3.0 x 18 mm RX Resolute [place] stent was then deployed in the proximal segment. Repeat angiography showed no residual stenosis. Acute marginal branch remained widely patent. CONCLUSIONS: 1. Subtotally occluded right coronary artery with moderate left-sided branch vessel obtuse marginal branch disease. 2. Successful percutaneous intervention with drug-eluting stent to the right coronary artery. PLAN: Angiomax was administered throughout the entire procedure to maintain appropriate anticoagulation. The patient will be loaded with Plavix and initiated on aggressive medical therapy. I think this will translate well to symptomatic improvement if it is a culprit lesion. At some point, we may consider elective outpatient stress test to make sure there is no lateral wall ischemia consistent with the obtuse marginal branch distribution. Anticipate possible discharge tomorrow. MD RAMIREZ Bettencourt/SB , 11:18 AM , 11:51 AM
[2017-10-24] MEDS: INSULIN ASPART SUPPLEMENTAL SCALE SQ SCH ×3 (12:00→21:00)
[2017-10-24] MEDS ORDERED: ONDANSETRON HCL 4 MG/2 ML VIAL IV PUSH PRN (12:30)
[2017-10-24] MEDS ORDERED: IOHEXOL 350 MG/ML 100 ML BTL (for Cath Lab) OTHER ONE (13:09)
[2017-10-24] MEDS ORDERED: ATORVASTATIN 40 MG TAB PO SCH (21:00)
[2017-10-24] MEDS ORDERED: ATORVASTATIN 20 MG TAB PO SCH (21:00)
[2017-10-24] MEDS: METOPROLOL TARTRATE 25 MG TAB PO SCH (21:57)
[2017-10-25] VITALS (12 sets, daily range): BP systolic 118–146; BP diastolic 73–94; PULSE 70–87; RESP 14–16; TEMP 97.9–98.9; O2SAT 95–98
--- NOTE | 2017-10-25 00:06 | EKG ---
Date Performed: 10/24/2017 Time Performed: 05:46:46 PTAGE: 62 years EKG: Sinus rhythm LOW QRS VOLTAGE IN PRECORDIAL LEADS MODERATE INTRAVENTRICULAR CONDUCTION DELAY BORDERLINE ECG Since the PREVIOUS TRACING , no significant change noted DOCTOR: Carl Mckeon Interpretating Date/Time 10/25/2017 00:04:41
[2017-10-25 06:33] LABS: CALCIUM 8.6 MG/DL (8.5-10.1); CREATININE 1.19 MG/DL (0.60-1.30)
[2017-10-25 06:36] LABS: CHOLESTEROL/ HDL RATIO 4.06 RATIO; HDL CHOLESTEROL 26.1 MG/DL (40.0-60.0)
[2017-10-25 06:39] LABS: AUTOMATED NEUTROPHIL # 4.5 TH/MM3 (1.8-7.7); BASOPHIL # 0.1 TH/MM3 (0-0.2); BASOPHIL % 0.8 % (0.0-2.0); EOSINOPHIL # 0.3 TH/MM3 (0-0.4); EOSINOPHIL % 3.6 % (0.0-4.0); HEMATOCRIT 44.4 % (39.0-51.0); HEMOGLOBIN 15.5 GM/DL (13.0-17.0); LYMPH % 25.9 % (9.0-44.0); LYMPHOCYTE # 1.9 TH/MM3 (1.0-4.8); MEAN CELL VOLUME 92.6 FL (80.0-100.0); MEAN CORPUSCULAR HEMOGLOBIN 32.3 PG (27.0-34.0); MEAN CORPUSCULAR HGB CONC 34.9 % (32.0-36.0); MEAN PLATELET VOLUME 10.7 FL (7.0-11.0); MONO % 9.4 % (0.0-8.0); MONOCYTE # 0.7 TH/MM3 (0-0.9); NEUT % 60.3 % (16.0-70.0); PLATELET COUNT 171 TH/MM3 (150-450); RED BLOOD COUNT 4.79 MIL/MM3 (4.50-5.90); RED CELL DISTRIBUTION WIDTH 13.5 % (11.6-17.2); WHITE BLOOD COUNT 7.5 TH/MM3 (4.0-11.0)
[2017-10-25] MEDS: LEVOTHYROXINE SODIUM 100 MCG TAB PO SCH (06:47)
--- NOTE | 2017-10-25 07:51 | PD.CARD.PN ---
Subjective Subjective Remarks Patient is feeling much better today wants to go home. He denies any chest pain , shortness breath, or palpitations Objective Medications Current Medications Medications (Trade) Dose Ordered Sig/Jonathan Route Start Time Stop Time Status Last Admin (Synthroid) 100 mcg DAILY@0600 PO 10/24/17 09:00 10/25/17 06:47 (Protonix) 40 mg DAILY PO 10/24/17 09:00 10/24/17 21:57 (NovoLOG SUPPLEMENTAL SCALE) 1 ACHS SLIDING SCALE SQ 10/24/17 12:00 (Plavix) 75 mg DAILY PO 10/25/17 09:00 (Xylocaine 2% Jelly) 1 applic UNSCH X1 PRN TOP 10/24/17 11:30 10/25/17 11:29 (Lopressor) 12.5 mg Q12HR PO 10/24/17 21:00 10/24/17 21:57 (D50w (Vial) Inj) 50 ml UNSCH PRN IV PUSH 10/24/17 11:45 (Glucagon Inj) 1 mg UNSCH PRN OTHER 10/24/17 11:45 (Lipitor) 40 mg HS PO 10/24/17 21:00 10/24/17 21:56 (Zofran Inj) 4 mg Q6H PRN IV PUSH 10/24/17 12:30 Vital Signs / I&O Vital Signs Date Time Temp Pulse Resp B/P (MAP) Pulse Ox O2 Delivery O2 Flow Rate FiO2 10/25/17 07:33 97.9 87 14 146/94 (111) 96 10/25/17 04:28 98.6 71 16 118/73 (88) 95 10/25/17 04:00 71 10/25/17 03:54 98 21 10/25/17 03:00 76 10/25/17 02:00 78 10/25/17 01:00 73 10/25/17 00:00 70 10/25/17 00:00 98.9 79 16 137/87 (104) 97 10/24/17 23:43 98 21 10/24/17 23:00 72 10/24/17 22:00 90 10/24/17 21:00 90 10/24/17 20:57 98 21 10/24/17 20:38 98.9 77 16 129/79 (96) 94 10/24/17 20:00 74 10/24/17 19:00 82 10/24/17 18:00 85 10/24/17 17:00 86 10/24/17 16:00 84 10/24/17 15:57 98.3 83 16 116/74 (88) 94 10/24/17 15:00 80 10/24/17 14:00 92 10/24/17 13:00 80 10/24/17 12:00 68 10/24/17 11:45 75 10/24/17 11:37 98.0 68 16 104/67 (79) 93 10/24/17 10:06 97.9 63 14 125/79 (94) 97 10/24/17 09:34 (111) I/O 10/24/17 10/24/17 10/24/17 10/25/17 10/25/17 10/25/17 06:59 14:59 22:59 06:59 14:59 22:59 Intake Total 750 ml 720 ml Output Total 600 ml Balance 750 ml 120 ml Intake Oral 720 ml IV Total 750 ml Output Urine Total 600 ml # Voids 1 Physical Exam GENERAL: Well-developed well-nourished. In no acute distress. NECK: No carotid bruits. No JVD. CARDIOVASCULAR: Regular rate and rhythm. No murmur appreciated. RESPIRATORY: No accessory muscle use. Clear to auscultation. Breath sounds equal bilaterally. MUSCULOSKELETAL: No clubbing or cyanosis. No edema. NEUROLOGICAL: Awake and alert. Normal speech. SKIN: Right wrist access site with no swelling or ecchymosis Laboratory Laboratory Tests Test 10/25/17 04:42 White Blood Count 7.5 TH/MM3 Red Blood Count 4.79 MIL/MM3 Hemoglobin 15.5 GM/DL Hematocrit 44.4 % Mean Corpuscular Volume 92.6 FL Mean Corpuscular Hemoglobin 32.3 PG Mean Corpuscular Hemoglobin Concent 34.9 % Red Cell Distribution Width 13.5 % Platelet Count 171 TH/MM3 Mean Platelet Volume 10.7 FL Neutrophils (%) (Auto) 60.3 % Lymphocytes (%) (Auto) 25.9 % Monocytes (%) (Auto) 9.4 % Eosinophils (%) (Auto) 3.6 % Basophils (%) (Auto) 0.8 % Neutrophils # (Auto) 4.5 TH/MM3 Lymphocytes # (Auto) 1.9 TH/MM3 Monocytes # (Auto) 0.7 TH/MM3 Eosinophils # (Auto) 0.3 TH/MM3 Basophils # (Auto) 0.1 TH/MM3 CBC Comment DIFF FINAL Differential Comment Blood Urea Nitrogen 14 MG/DL Creatinine 1.19 MG/DL Random Glucose 142 MG/DL Calcium Level 8.6 MG/DL Sodium Level 141 MEQ/L Potassium Level 3.8 MEQ/L Chloride Level 104 MEQ/L Carbon Dioxide Level 28.0 MEQ/L Anion Gap 9 MEQ/L Estimat Glomerular Filtration Rate 62 ML/MIN Total Creatine Kinase 270 U/L Triglycerides Level 234 MG/DL Cholesterol Level 106 MG/DL LDL Cholesterol 33 MG/DL HDL Cholesterol 26.1 MG/DL Cholesterol/HDL Ratio 4.06 RATIO Imaging Last Impressions Chest X-Ray 10/24/17 0552 Signed Impressions: Service Date/Time: Tuesday, October 24, 2017 05:57 - CONCLUSION: 1. Minimal basilar atelectasis. No consolidation or significant effusion. Sunny Sanchez MD Assessment and Plan Assessment and Plan 62-year-old male with a past medical history of CAD with LAD stent in 2004, HTN , HLD, DM, GERD/Sandoval's esophagus, [facility] on CPAP, hypothyroidism who presented for chest pain. NSTEMI: Cardiac catheterization 10/24 showed 99% RCA lesion with successful PCI w / DERIK. Started on Plavix and metoprolol. Atorvastatin increased, patient agreeable to try increased dose for now but complains of myalgias in the past. Will likely clear for discharge from cardiology perspective today Discussed Condition With Patient with RN at bedside Pa Melotn Oct 25, 2017 07:51
[2017-10-25] MEDS: INSULIN ASPART SUPPLEMENTAL SCALE SQ SCH (08:00)
[2017-10-25] MEDS ORDERED: PLAV75TA29 PO (08:25)
[2017-10-25] MEDS ORDERED: ATOR40TA16 PO (08:25)
[2017-10-25] MEDS ORDERED: METO25TA3 PO (08:25)
--- NOTE | 2017-10-25 08:27 | HHI.DCPOC ---
Discharge Care Plan Diagnosis: (1) CAD (coronary artery disease) (2) Sleep apnea (3) HTN (hypertension) (4) Chest pain (5) Hypothyroidism (6) Hyperlipidemia (7) Diabetes (8) Low testosterone Goals to Promote Your Health * To prevent worsening of your condition and complications * To maintain your health at the optimal level Directions to Meet Your Goals Take your medications as prescribed Follow your dietary instruction Follow activity as directed Keep your appointments as scheduled Take your immunizations and boosters as scheduled If your symptoms worsen call your PCP, if no PCP go to Urgent Care Center or Emergency Room Smoking is Dangerous to Your Health. Avoid second hand smoke Call the 24-hour hour crisis hotline for domestic abuse at [facility] Oct 25, 2017 08:27 Gabriel Mora DO Oct 25, 2017 10:45
--- NOTE | 2017-10-25 08:51 | HHI.PR ---
Subjective Remarks Pt denies any further chest discomfort He is anxious for discharge to home today Objective Vitals Vital Signs Date Time Temp Pulse Resp B/P (MAP) Pulse Ox O2 Delivery O2 Flow Rate FiO2 10/25/17 07:33 97.9 87 14 146/94 (111) 96 10/25/17 04:28 98.6 71 16 118/73 (88) 95 10/25/17 04:00 71 10/25/17 03:54 98 21 10/25/17 03:00 76 10/25/17 02:00 78 10/25/17 01:00 73 10/25/17 00:00 70 10/25/17 00:00 98.9 79 16 137/87 (104) 97 10/24/17 23:43 98 21 10/24/17 23:00 72 10/24/17 22:00 90 10/24/17 21:00 90 10/24/17 20:57 98 21 10/24/17 20:38 98.9 77 16 129/79 (96) 94 10/24/17 20:00 74 10/24/17 19:00 82 10/24/17 18:00 85 10/24/17 17:00 86 10/24/17 16:00 84 10/24/17 15:57 98.3 83 16 116/74 (88) 94 10/24/17 15:00 80 10/24/17 14:00 92 10/24/17 13:00 80 10/24/17 12:00 68 10/24/17 11:45 75 10/24/17 11:37 98.0 68 16 104/67 (79) 93 10/24/17 10:06 97.9 63 14 125/79 (94) 97 10/24/17 09:34 (111) Result Diagram: 10/25/17 0442 10/25/17 0442 Other Results Laboratory Tests Test 10/24/17 05:50 10/25/17 04:42 White Blood Count 7.7 TH/MM3 7.5 TH/MM3 Red Blood Count 5.09 MIL/MM3 4.79 MIL/MM3 Hemoglobin 16.3 GM/DL 15.5 GM/DL Hematocrit 46.9 % 44.4 % Mean Corpuscular Volume 92.1 FL 92.6 FL Mean Corpuscular Hemoglobin 32.1 PG 32.3 PG Mean Corpuscular Hemoglobin Concent 34.9 % 34.9 % Red Cell Distribution Width 13.7 % 13.5 % Platelet Count 190 TH/MM3 171 TH/MM3 Mean Platelet Volume 10.0 FL 10.7 FL Neutrophils (%) (Auto) 54.6 % 60.3 % Lymphocytes (%) (Auto) 32.6 % 25.9 % Monocytes (%) (Auto) 8.8 % 9.4 % Eosinophils (%) (Auto) 3.2 % 3.6 % Basophils (%) (Auto) 0.8 % 0.8 % Neutrophils # (Auto) 4.2 TH/MM3 4.5 TH/MM3 Lymphocytes # (Auto) 2.5 TH/MM3 1.9 TH/MM3 Monocytes # (Auto) 0.7 TH/MM3 0.7 TH/MM3 Eosinophils # (Auto) 0.2 TH/MM3 0.3 TH/MM3 Basophils # (Auto) 0.1 TH/MM3 0.1 TH/MM3 CBC Comment DIFF FINAL DIFF FINAL Differential Comment Prothrombin Time 10.3 SEC Prothromb Time International Ratio 1.0 RATIO Activated Partial Thromboplast Time 24.5 SEC Blood Urea Nitrogen 17 MG/DL 14 MG/DL Creatinine 1.21 MG/DL 1.19 MG/DL Random Glucose 161 MG/DL 142 MG/DL Total Protein 7.5 GM/DL Albumin 4.0 GM/DL Calcium Level 9.0 MG/DL 8.6 MG/DL Alkaline Phosphatase 116 U/L Aspartate Amino Transf (AST/SGOT) 25 U/L Alanine Aminotransferase (ALT/SGPT) 44 U/L Total Bilirubin 0.6 MG/DL Sodium Level 140 MEQ/L 141 MEQ/L Potassium Level 3.9 MEQ/L 3.8 MEQ/L Chloride Level 104 MEQ/L 104 MEQ/L Carbon Dioxide Level 28.3 MEQ/L 28.0 MEQ/L Anion Gap 8 MEQ/L 9 MEQ/L Estimat Glomerular Filtration Rate 61 ML/MIN 62 ML/MIN Total Creatine Kinase 334 U/L 270 U/L Creatine Kinase MB 3.1 NG/ML Creatine Kinase MB % 0.9 % Troponin I 0.09 NG/ML Triglycerides Level 234 MG/DL Cholesterol Level 106 MG/DL LDL Cholesterol 33 MG/DL HDL Cholesterol 26.1 MG/DL Cholesterol/HDL Ratio 4.06 RATIO Imaging Last Impressions Chest X-Ray 10/24/17 0552 Signed Impressions: Service Date/Time: Tuesday, October 24, 2017 05:57 - CONCLUSION: 1. Minimal basilar atelectasis. No consolidation or significant effusion. Sunny Sanchez MD Objective Remarks General: NAD, AAOx3 Chest: CTA Cardiac: Regular Abd: +BS, soft ND/NT Ext: No edema A/P Problem List: (1) Chest pain ICD Codes: R07.9 - Chest pain, unspecified Status: Acute Plan: - Pt is a 62 y/o WM with HTN, Hyperlipidemia, hx of CAD with LAD stent in 2004, Diabetes mellitus, GERD/Sandoval's esophagus, [facility] on CPAP, and hypothyroidism who presented to the ED at [facility] [place] [facility] on 10/24/17 with complaints of chest pain. - He reports that lately he has been having episodes intermittently of chest pain and shortness of breath with exertion which typically last a few seconds. - His last C was in 2004 in [place] and he had stent to LAD placed at that time. - His last stress test was in 2013 and was negative. - The pain is currently relieved some after receiving aspirin, nitro patch, and heparin GTT in the ED. - Initial EKG with no acute ischemic changes. Initial troponin 0.09. - Pt underwent evaluation with [facility] (10/24/17) --> 99% RCA lesion with successful PCI w/ DERIK. - Pt was started on Plavix and metoprolol. - Atorvastatin was increased to 40mg po daily, patient agreeable to try increased dose for now but complains of myalgias in the past. - Cont. Norvasc - Telemetry with NSR - 2D echo is ordered, if not completed prior to discharge this may be done as an outpt with [facility] - Pt cleared for discharge by Cardiology for today - Pt will need to followup with his PCP, Dr. Stepan Le, in 1 week - Pt will need to followup with Dr. Weiss in 2 weeks (2) Hx of coronary artery disease ICD Codes: Z86.79 - Personal history of other diseases of the circulatory system Status: Chronic Plan: - See above (3) HTN (hypertension) ICD Codes: I10 - Essential (primary) hypertension Status: Chronic Plan: - Home meds continued - Metoprolol 12.5mg po BID added (4) Hyperlipidemia ICD Codes: E78.5 - Hyperlipidemia Status: Chronic Plan: - Atorvastatin increased to 40mg po HS (5) Hypothyroidism ICD Codes: E03.9 - Hypothyroidism Status: Acute Plan: - Cont. home meds (6) Diabetes ICD Codes: E11.9 - Diabetes Status: Chronic Plan: - Cont. home meds upon discharge, Metformin to be resumed on 10/26 (7) Sleep apnea ICD Codes: G47.30 - Sleep apnea Status: Chronic Plan: - Pt can use mask from home. (8) Barretts esophagus ICD Codes: K22.70 - Barretts esophagus Status: Chronic Plan: - Cont. PPI Assessment and Plan Patient examined. Assessment and plan formulated with Rosario Rice PA-C. I agree with the above. Pt comfortable this morning. Pt denies chest pain. Pt is eager for discharge to home. Pt's new medications reviewed. Pt to f/u with Dr. Weiss/PCP in 1 week Echocardiogram (10/25) --> 55-65% Problem Qualifiers (1) Diabetes: Rosario Rice Oct 25, 2017 08:51 Gabriel Mora DO Oct 25, 2017 10:48
[2017-10-25] MEDS: METOPROLOL TARTRATE 25 MG TAB PO SCH (08:52)
[2017-10-25] MEDS ORDERED: CLOPIDOGREL 75 MG TAB PO SCH (09:00)
--- NOTE | 2017-10-25 10:37 | ECHRPT ---
Indication: Chest Pain CONCLUSIONS The left ventricular systolic function is normal with an estimated ejection fraction in the range of 55-60%. Normal left ventricular size. Mild concentric left ventricular hypertrophy. Trace mitral valve regurgitation. There is trace tricuspid valve regurgitation. The estimated pulmonary arterial pressure is 28 mmHg. Trivial pulmonary valve regurgitation. BP: 147 / 94 HR: 86 Rhythm: Sinus MEASUREMENTS (Male / Female) Normal Values Technical Quality:Fair 2D ECHO LV Diastolic Diameter PLAX 4.6 cm 4.2 - 5.9 / 3.9 - 5.3 cm LV Systolic Diameter PLAX 3.2 cm IVS Diastolic Thickness 1.1 cm 0.6 - 1.0 / 0.6 - 0.9 cm LVPW Diastolic Thickness 1.1 cm 0.6 - 1.0 / 0.6 - 0.9 cm LV Relative Wall Thickness 0.5 RV Internal Dim ED PLAX 4.3 cm LVOT Diameter 1.9 cm LA Systolic Diameter LX 3.8 cm 3.0 - 4.0 / 2.7 - 3.8 cm M-MODE Aortic Root Diameter MM 2.9 cm LA Systolic Diameter MM 4.4 cm LA Ao Ratio MM 1.5 AV Cusp Separation MM 2.1 cm DOPPLER AV Peak Velocity 187.0 cm/s AV Peak Gradient 14.0 mmHg LVOT Peak Velocity 136.0 cm/s LVOT Peak Gradient 7.4 mmHg AV Area Cont Eq pk 2.1 cm MV Area PHT 2.5 cm Mitral E Point Velocity 75.5 cm/s Mitral A Point Velocity 85.9 cm/s Mitral E to A Ratio 0.9 LV E' Lateral Velocity 9.3 cm/s Mitral E to LV E' Lateral Ratio 8.2 LV E' Septal Velocity 5.9 cm/s Mitral E to LV E' Septal Ratio 12.7 TR Peak Velocity 215.0 cm/s TR Peak Gradient 18.5 mmHg Right Atrial Pressure 10.0 mmHg Pulmonary Artery Systolic Pressu 28.5 mmHg Right Ventricular Systolic Press 28.5 mmHg FINDINGS LEFT VENTRICLE The left ventricular systolic function is normal with an estimated ejection fraction in the range of 55-60%. Normal left ventricular size. Mild concentric left ventricular hypertrophy. RIGHT VENTRICLE Normal right ventricular size and systolic function. LEFT ATRIUM The left atrial size is normal. RIGHT ATRIUM The right atrial size is normal. ATRIAL SEPTUM Normal atrial septal thickness without atrial level shunting by limited color doppler interrogation. AORTA The aortic root and proximal ascending aorta are normal in size on limited imaging. MITRAL VALVE Structurally normal mitral valve. Trace mitral valve regurgitation. AORTIC VALVE Trileaflet aortic valve. No aortic valve stenosis or regurgitation. TRICUSPID VALVE Structurally normal tricuspid valve. There is trace tricuspid valve regurgitation. The estimated pulmonary arterial pressure is 28 mmHg. PULMONARY VALVE Trivial pulmonary valve regurgitation. VESSELS The inferior vena cava is normal in size. PERICARDIUM No pericardial effusion. Edi Weiss MD, FACC (Electronically Signed) Final Date:25 October 2017 10:36
== END 2017-10-25 11:51 | disposition home or self-care (01) | DRG 247 ==
LOC: NEPE 05:43 → NEDA 07:01 → HCIS 09:54
PROVIDERS: ADMIT Hospitalist; ATTEND Hospitalist
PROC: B2111ZZ Fluoroscopy of Multiple Coronary Arteries using Low Osmolar Contrast (ICD-10-PCS; 2017-10-24)
PROC: 027034Z Dilation of Coronary Artery, One Artery with Drug-eluting Intraluminal Device, Percutaneous Approach (ICD-10-PCS; principal; 2017-10-24 10:30)
DX: I21.4 Non-ST elevation (NSTEMI) myocardial infarction (principal); I10 Essential (primary) hypertension; E11.9 Type 2 diabetes mellitus without complications; I25.10 Atherosclerotic heart disease of native coronary artery without angina pectoris; Z95.5 Presence of coronary angioplasty implant and graft; G47.33 Obstructive sleep apnea (adult) (pediatric); E03.9 Hypothyroidism, unspecified; I25.2 Old myocardial infarction; E78.5 Hyperlipidemia, unspecified; K21.9 Gastro-esophageal reflux disease without esophagitis; K22.70 Barrett's esophagus without dysplasia; F32.9 Major depressive disorder, single episode, unspecified; Z79.84 Long term (current) use of oral hypoglycemic drugs; Z87.891 Personal history of nicotine dependence; Z91.040 Latex allergy status
CPT/HCPCS: 71045; 80048; 80053; 80061; 82550; 82552; 82948; 84484; 85025; 85610; 85730; 92928; 93005; 93306; 93454; 94003; 99152; 99153; C1725; C1769; C1887; C1893; J0583; J1644; J2250; J3010; J7030; Q9967

== ENCOUNTER 2017-10-31 12:32 | Emergency (ER) | payer OTHER ==
[~2017-10-31] VITALS: Ht 177.8 cm; Wt 112.7 kg
[~2017-10-31 12:32] MED LIST changes: +ALBI1INJ SQ; -AMLO10TA2 PO; +ATOR40TA16 PO; -CPAP MASK; -Glucometer; -LIPI20TA PO; +METO25TA3 PO; +PLAV75TA29 PO; -[UNRECOGNIZED DRUG - OTHER]; -lancets
[2017-10-31] MEDS ORDERED: IOHEXOL 350 MG/ML 10 ML VIAL (for RAD DIAG) IVCONTRAST ONE (12:33)
[2017-10-31 12:40] VITALS: BP 157/104; PULSE 72; RESP 20; TEMP 97.6; O2SAT 97
[2017-10-31 13:14] LABS: AUTOMATED NEUTROPHIL # 3.1 TH/MM3 (1.8-7.7); BASOPHIL # 0.1 TH/MM3 (0-0.2); EOSINOPHIL # 0.3 TH/MM3 (0-0.4); EOSINOPHIL % 4.9 % (0.0-4.0); HEMOGLOBIN 16.2 GM/DL (13.0-17.0); LYMPH % 38.5 % (9.0-44.0); LYMPHOCYTE # 2.6 TH/MM3 (1.0-4.8); MEAN CELL VOLUME 92.1 FL (80.0-100.0); MEAN CORPUSCULAR HEMOGLOBIN 32.5 PG (27.0-34.0); MEAN CORPUSCULAR HGB CONC 35.3 % (32.0-36.0); MEAN PLATELET VOLUME 9.9 FL (7.0-11.0); MONOCYTE # 0.7 TH/MM3 (0-0.9); NEUT % 45.6 % (16.0-70.0); PLATELET COUNT 207 TH/MM3 (150-450); RED BLOOD COUNT 4.99 MIL/MM3 (4.50-5.90); RED CELL DISTRIBUTION WIDTH 13.5 % (11.6-17.2); WHITE BLOOD COUNT 6.8 TH/MM3 (4.0-11.0)
--- NOTE | 2017-10-31 13:22 | RADRPT ---
EXAM DATE/TIME: 10/31/2017 12:59 [facility] COMPARISON: No previous studies available for comparison. INDICATIONS : Right sided chest pain since this morning. MEDICAL HISTORY : None. SURGICAL HISTORY : Cholecystectomy. Coronary artery stent. ENCOUNTER: Initial ACUITY: 1 day PAIN SCORE: 3/10 LOCATION: Right chest FINDINGS: PA and lateral views of the chest demonstrate the lungs to be symmetrically aerated without evidence of mass, infiltrate or effusion. The cardiomediastinal contours are unremarkable. Osseous structure s are intact. CONCLUSION: The lungs are clear. Teddy Harrison MD on October 31, 2017 at 13:20 Board Certified Radiologist. This report was verified electronically.
--- NOTE | 2017-10-31 13:22 | PD ---
Data Data Last Documented VS Vital Signs Date Time Temp Pulse Resp B/P (MAP) Pulse Ox O2 Delivery O2 Flow Rate FiO2 10/31/17 13:39 60 14 147/90 (109) 97 Room Air 10/31/17 12:40 97.6 Orders Orders Electrocardiogram (10/31/17 12:42) Basic Metabolic Panel (Bmp) (10/31/17 12:42) Ckmb (Isoenzyme) Profile (10/31/17 12:42) Complete Blood Count With Diff (10/31/17 12:42) Magnesium (Mg) (10/31/17 12:42) Prothrombin Time / Inr (Pt) (10/31/17 12:42) Act Partial Throm Time (Ptt) (10/31/17 12:42) Troponin I (10/31/17 12:42) Chest, Pa & Lat (10/31/17 12:42) CKMB (10/31/17 13:00) CKMB% (10/31/17 13:00) Aspirin (Aspirin) (10/31/17 14:00) Ct Pulmonary Angiogram (10/31/17 ) Iohexol 350 Inj (Omnipaque 350 Inj) (10/31/17 12:33) Labs Laboratory Tests Test 10/31/17 13:00 White Blood Count 6.8 TH/MM3 Red Blood Count 4.99 MIL/MM3 Hemoglobin 16.2 GM/DL Hematocrit 46.0 % Mean Corpuscular Volume 92.1 FL Mean Corpuscular Hemoglobin 32.5 PG Mean Corpuscular Hemoglobin Concent 35.3 % Red Cell Distribution Width 13.5 % Platelet Count 207 TH/MM3 Mean Platelet Volume 9.9 FL Neutrophils (%) (Auto) 45.6 % Lymphocytes (%) (Auto) 38.5 % Monocytes (%) (Auto) 10.0 % Eosinophils (%) (Auto) 4.9 % Basophils (%) (Auto) 1.0 % Neutrophils # (Auto) 3.1 TH/MM3 Lymphocytes # (Auto) 2.6 TH/MM3 Monocytes # (Auto) 0.7 TH/MM3 Eosinophils # (Auto) 0.3 TH/MM3 Basophils # (Auto) 0.1 TH/MM3 CBC Comment DIFF FINAL Differential Comment Prothrombin Time 10.2 SEC Prothromb Time International Ratio 1.0 RATIO Activated Partial Thromboplast Time 24.0 SEC Blood Urea Nitrogen 17 MG/DL Creatinine 1.28 MG/DL Random Glucose 114 MG/DL Calcium Level 9.0 MG/DL Magnesium Level 2.0 MG/DL Sodium Level 139 MEQ/L Potassium Level 4.2 MEQ/L Chloride Level 103 MEQ/L Carbon Dioxide Level 29.3 MEQ/L Anion Gap 7 MEQ/L Estimat Glomerular Filtration Rate 57 ML/MIN Total Creatine Kinase 252 U/L Creatine Kinase MB 2.4 NG/ML Troponin I LESS THAN 0.02 NG/ML [facility] Medical Record Reviewed: Yes Supervised Visit with DANIA: Yes Narrative Course I, Dr. Mckeon, have reviewed the advance practice practitioner's documentation and am in agreement, met with the patient face to face, made the diagnosis, and the medical decision making was done by me. *My assessment and Findings: CBC & BMP Diagram 10/31/17 13:00 Calcium Level 9.0, Magnesium Level 2.0 Troponins less than 0.02 Last Impressions Chest X-Ray 10/31/17 1242 Signed Impressions: Service Date/Time: Tuesday, October 31, 2017 12:59 - CONCLUSION: The lungs are clear. Teddy Harrison MD CT Angiography 10/31/17 0000 Signed Impressions: Service Date/Time: Tuesday, October 31, 2017 14:22 - CONCLUSION: 1. No pulmonary embolus identified. 2. Previous coronary stent placement. Edison Alfred MD Please refer to mid-level note. The patient will go home with isosorbide follow -up with Dr. weldon Diagnosis Primary Impression: Chest pain Qualified Codes: R07.9 - Chest pain, unspecified Med/Other Pt SpecificInfo: Prescription(s) given Disposition: DISCHARGE HOME Condition: Stable Edison Mckeon MD Oct 31, 2017 13:22
[2017-10-31 13:24] LABS: PROTHROMBIN TIME - PATIENT 10.2 SEC (9.8-11.6)
[2017-10-31 13:32] LABS: BICARBONATE 29.3 MEQ/L (21.0-32.0); BLOOD UREA NITROGEN 17 MG/DL (7-18); CHLORIDE 103 MEQ/L (98-107); CREATININE 1.28 MG/DL (0.60-1.30); GLOMERULAR FILTRATION RATE 57 ML/MIN (>89); GLUCOSE,RANDOM 114 MG/DL (74-106); SODIUM (NA) 139 MEQ/L (136-145)
[2017-10-31 13:36] VITALS: BP 170/100; PULSE 62; RESP 16; O2SAT 95
[2017-10-31 13:36] LABS: TROPONIN I LESS THAN 0.02 NG/ML (0.02-0.05)
[2017-10-31 13:39] VITALS: BP 147/90; PULSE 60; RESP 14; O2SAT 97
[2017-10-31] MEDS ORDERED: MULT-65 PO (13:49)
[2017-10-31] MEDS ORDERED: ESSE250T PO (13:49)
[2017-10-31] MEDS ORDERED: TURM500C7 PO (13:49)
[2017-10-31] MEDS ORDERED: ASPIRIN 325 MG TAB PO ONE (14:00)
--- NOTE | 2017-10-31 14:19 | PD ---
HPI Chief Complaint: Chest Pain Time Seen by Provider: 13:17 Travel History International Travel<30 days: No Contact w/Intl Traveler<30days: No Traveled to known affect area: No History of Present Illness HPI 62-year-old male that presents to the ED for evaluation of right-sided chest pressure. Per patient he describes a numbness pain more more like gas pain. Per patient is been ongoing since today after being discharged here after having a heart count. Patient had a heart cath that shows significant disease of the right RCA at the had to require a stent. Per patient he was doing well until he was discharged. He was recently switched and stop on his amlodipine and started on metoprolol as well as Plavix and told to take an aspirin but apparently patient has not taken the aspirin. He states that the pain is 7 out of 10. He went today to his service station cashier's office who sent him here for evaluation because of the pain. Patient was not seen by the service station cashier. Patient has an allergy to latex. Patient denies any shortness of breath. No urinary or bowel movement issues. No headache. No trauma. Patient does take multiple medications and has history of hypertension and diabetes. Pain does not radiate and stays on the right side. Patient is the same pain he had when he initially came here for the heart stent. PFSH Past Medical History Anxiety: Yes Depression: Yes Heart Rhythm Problems: Yes Cancer: No Cardiac Catheterization: Yes (X 2, 2004-LAD, 2018-RCA) Cardiovascular Problems: Yes High Cholesterol: Yes Chest Pain: Yes Congestive Heart Failure: No Diabetes: Yes Patient Takes Glucophage: Yes Diminished Hearing: No Endocrine: Yes Gastrointestinal Disorders: Yes (BARRETTS) GERD: Yes Genitourinary: Yes (cyst and mast on right kidney) Hepatitis: No Hiatal Hernia: No Hypertension: Yes Immune Disorder: No Musculoskeletal: No Neurologic: No Psychiatric: No Reproductive: Yes (vasectomy reversal) Respiratory: Yes (SLEEP APNEA) Immunizations Current: Yes Migraines: No Myocardial Infarction: Yes (2006) Pneumonia: Yes Seizures: No Sleep Apnea: Yes (cpap at night) Thyroid Disease: Yes (hypothyroidism) Past Surgical History Abdominal Surgery: No Cardiac Surgery: Yes (stent placed LAD in 2003) Cholecystectomy: Yes Coronary Artery Bypass Graft: No Ear Surgery: No Endocrine Surgery: No Eye Surgery: No Genitourinary Surgery: Yes (REVERSE VASECTOMY) Oral Surgery: No Thoracic Surgery: No Tonsillectomy: Yes Social History Alcohol Use: Yes (one glass of wine per night) Tobacco Use: No Substance Use: No Allergies-Medications (Allergen,Severity, Reaction): Coded Allergies: latex (Unverified Allergy, Mild, Itching, 10/31/17) Reported Meds & Prescriptions Reported Meds & Active Scripts Active Isosorbide Mononitrate ER (Isosorbide Mononitrate) 30 Mg Isaiah 30 Mg PO DAILY Metoprolol Tartrate 25 Mg Tab 12.5 Mg PO Q12HR Atorvastatin (Atorvastatin Calcium) 40 Mg Tab 40 Mg PO HS Plavix (Clopidogrel Bisulfate) 75 Mg Tab 75 Mg PO DAILY Reported Turmeric (Turmeric Root Extract) 500 Mg Capsule 500 Mg PO DAILY Multi-Vitamin Daily (Multiple Vitamin) 1 Tab Tab 1 Tab PO DAILY Magnesium 250 Mg Tab 250 Mg PO HS Tanzeum 4-Pack Inj (Albiglutide) 30 Mg Pfpen 30 Mg SQ Q7D Testosterone Topical (Testosterone) 1 % Gel 12.5 Mg TOPICAL DAILY Levothyroxine (Levothyroxine Sodium) 100 Mcg Tab 100 Mcg PO DAILY Aspirin 81 (Aspirin) 81 Mg Tabdr 81 Mg PO DAILY Pantoprazole (Pantoprazole Sodium) 40 Mg Tab 40 Mg PO HS Metformin (Metformin HCl) 500 Mg Tab 500 Mg PO BIDPC With meals Ventolin Hfa 18 GM Inh (Albuterol Sulfate) 90 Mcg/Act Aer 1 Puff INH Q6HR PRN Review of Systems Except as stated in HPI: all other systems reviewed are Neg Physical Exam Narrative GENERAL: SKIN: Warm and dry. HEAD: Atraumatic. Normocephalic. EYES: Pupils equal and round 4 mm reactive to light and accommodation. No scleral icterus. No injection or drainage. ENT: No nasal bleeding or discharge. Mucous membranes pink and moist. Tongue is midline. No uvula deviation. NECK: Trachea midline. No JVD. CARDIOVASCULAR: Regular rate and rhythm. No murmurs, S3, S4. RESPIRATORY: No accessory muscle use. Clear to auscultation. Breath sounds equal bilaterally. GASTROINTESTINAL: Abdomen soft, non-tender, nondistended. Hepatic and splenic margins not palpable. MUSCULOSKELETAL: Extremities without clubbing, cyanosis, or edema. No obvious deformities. Full range of motion of the upper and lower extremities bilaterally. 2+ pulses bilaterally. NEUROLOGICAL: Awake and alert. No obvious cranial nerve deficits. Motor grossly within normal limits. Five out of 5 muscle strength in the arms and legs. Normal speech. PSYCHIATRIC: Appropriate mood and affect; insight and judgment normal. Data Data Last Documented VS Vital Signs Date Time Temp Pulse Resp B/P (MAP) Pulse Ox O2 Delivery O2 Flow Rate FiO2 10/31/17 13:39 60 14 147/90 (109) 97 Room Air 10/31/17 12:40 97.6 Orders Orders Electrocardiogram (10/31/17 12:42) Basic Metabolic Panel (Bmp) (10/31/17 12:42) Ckmb (Isoenzyme) Profile (10/31/17 12:42) Complete Blood Count With Diff (10/31/17 12:42) Magnesium (Mg) (10/31/17 12:42) Prothrombin Time / Inr (Pt) (10/31/17 12:42) Act Partial Throm Time (Ptt) (10/31/17 12:42) Troponin I (10/31/17 12:42) Chest, Pa & Lat (10/31/17 12:42) CKMB (10/31/17 13:00) CKMB% (10/31/17 13:00) Aspirin (Aspirin) (10/31/17 14:00) Ct Pulmonary Angiogram (10/31/17 ) Iohexol 350 Inj (Omnipaque 350 Inj) (10/31/17 12:33) Ed Discharge Order (10/31/17 15:09) Labs Laboratory Tests Test 10/31/17 13:00 White Blood Count 6.8 TH/MM3 Red Blood Count 4.99 MIL/MM3 Hemoglobin 16.2 GM/DL Hematocrit 46.0 % Mean Corpuscular Volume 92.1 FL Mean Corpuscular Hemoglobin 32.5 PG Mean Corpuscular Hemoglobin Concent 35.3 % Red Cell Distribution Width 13.5 % Platelet Count 207 TH/MM3 Mean Platelet Volume 9.9 FL Neutrophils (%) (Auto) 45.6 % Lymphocytes (%) (Auto) 38.5 % Monocytes (%) (Auto) 10.0 % Eosinophils (%) (Auto) 4.9 % Basophils (%) (Auto) 1.0 % Neutrophils # (Auto) 3.1 TH/MM3 Lymphocytes # (Auto) 2.6 TH/MM3 Monocytes # (Auto) 0.7 TH/MM3 Eosinophils # (Auto) 0.3 TH/MM3 Basophils # (Auto) 0.1 TH/MM3 CBC Comment DIFF FINAL Differential Comment Prothrombin Time 10.2 SEC Prothromb Time International Ratio 1.0 RATIO Activated Partial Thromboplast Time 24.0 SEC Blood Urea Nitrogen 17 MG/DL Creatinine 1.28 MG/DL Random Glucose 114 MG/DL Calcium Level 9.0 MG/DL Magnesium Level 2.0 MG/DL Sodium Level 139 MEQ/L Potassium Level 4.2 MEQ/L Chloride Level 103 MEQ/L Carbon Dioxide Level 29.3 MEQ/L Anion Gap 7 MEQ/L Estimat Glomerular Filtration Rate 57 ML/MIN Total Creatine Kinase 252 U/L Creatine Kinase MB 2.4 NG/ML Troponin I LESS THAN 0.02 NG/ML MDM Medical Decision Making Medical Screen Exam Complete: Yes Emergency Medical Condition: Yes Medical Record Reviewed: Yes Interpretation(s) CBC & BMP Diagram 10/31/17 13:00 Calcium Level 9.0, Magnesium Level 2.0 Last Impressions Chest X-Ray 10/31/17 1242 Signed Impressions: Service Date/Time: Tuesday, October 31, 2017 12:59 - CONCLUSION: The lungs are clear. Teddy Harrison MD CT Angiography 10/31/17 0000 Signed Impressions: Service Date/Time: Tuesday, October 31, 2017 14:22 - CONCLUSION: 1. No pulmonary embolus identified. 2. Previous coronary stent placement. Edison Alfred MD Troponin and CK-MB negative. EKG shows sinus rhythm with no sign of acute ischemia or arrhythmia read by me and attending. My attending agrees there is no sign of acute changes from prior Differential Diagnosis Chest pain versus atypical chest pain versus PE versus angina versus unstable angina versus ACS Narrative Course 62-year-old male that presents to the ED for evaluation of right-sided chest discomfort. Patient was properly examined and was found to have signs and symptoms concerning for cardiac disease. He does have a history of coronary disease and I did review his records and had a heart cath just 7 days ago. Labs and imaging were started in triage and there were essentially unremarkable. EKG did not show any sign of acute ischemia and no changes noted from previous EKG per my attending. Patient does take testosterone and a question whether patient may have something else going on as well as to the N STEMI. My attending recommend CTA to rule out pulmonary embolism. This was ordered. Discussed the case with Dr. Weiss over the phone who reviewed the patient's medical records and recommends starting the patient in isosorbide 30 mg daily as well as restarted aspirin which patient has not taken. He wants the patient to be seen in his office this week. This was related to the patient who agrees with plan. CTA was negative for acute disease. My attending agrees with discharge. Patient agrees with plan. Patient was given prescription. Told to continue taking aspirin. Told to follow with service station cashier this week. See ED if worsening symptoms. Diagnosis Primary Impression: Chest pain Qualified Codes: R07.9 - Chest pain, unspecified Referrals: Doug Chambers MD Patient Instructions: General Instructions Additional Instructions: Take 81 mg aspirin every day. Take new medication as prescribed which should help with the discomfort of the chest. Follow-up with service station cashier this week. Dr. Chambers wants to see you in his office this week. See ED if any worsening symptoms. Med/Other Pt SpecificInfo: Prescription(s) given Scripts Isosorbide Mononitrate ER (Isosorbide Mononitrate ER) 30 Mg Isaiah 30 MG PO DAILY for Prevent Chest Pain, #30 TAB 0 Refills Prov: Edison Mckeon MD 10/31/17 Disposition: 01 DISCHARGE HOME Condition: Jayson Lazar Oct 31, 2017 14:19
--- NOTE | 2017-10-31 14:46 | RADRPT ---
EXAM DATE/TIME: 10/31/2017 14:22 [facility] COMPARISON: No previous studies available for comparison. INDICATIONS : Right upper chest pain IV CONTRAST: 66 cc Omnipaque 350 (iohexol) IV RADIATION DOSE: 10.77 CTDIvol (mGy) MEDICAL HISTORY : Cardiovascular disease. Hypertension. Diabetets,barretts SURGICAL HISTORY : Coronary artery stent. ENCOUNTER: Initial ACUITY: 1 week PAIN SCALE: 2/10 LOCATION: Right chest TECHNIQUE: Volumetric scanning of the chest was performed using a pulmonary embolism protocol MIP images were re constructed. Using automated exposure control and adjustment of the mA and/or kV according to patien t size, radiation dose was kept as low as reasonably achievable to obtain optimal diagnostic quality images. DICOM format image data is available electronically for review and comparison. Follow-up recommendations for detected pulmonary nodules are based at a minimum on nodule size and pa tient risk factors according to Fleischner Society Guidelines. FINDINGS: The examination is of good diagnostic quality. No pulmonary embolus is identified. The heart is normal in size. There is atherosclerotic plaquing and coronary arteries. There has been previous stenting of the LAD and the right coronary. No pericardial effusion is seen. There is no hil ar or mediastinal adenopathy present. The visualized pulmonary parenchyma is clear. No pleural effusion is seen. The limited portions of upper abdomen visualized are unremarkable. There are mild degenerative changes in the thoracic spine. CONCLUSION: 1. No pulmonary embolus identified. 2. Previous coronary stent placement. Edison Alfred MD on October 31, 2017 at 14:42 Board Certified Radiologist. This report was verified electronically.
[2017-10-31] MEDS ORDERED: ISOS30TA3 PO (15:08)
[2017-10-31 15:19] VITALS: BP 126/68; PULSE 67; RESP 17; O2SAT 96
--- NOTE | 2017-10-31 17:41 | EKG ---
Date Performed: 10/31/2017 Time Performed: 12:52:51 PTAGE: 62 years EKG: Sinus rhythm POSSIBLE LEFT ATRIAL ENLARGEMENT INTRAVENTRICULAR CONDUCTION DELAY ABNORMAL ECG Compared to prior el ectrocardiogram, Nonspecific T-wave changes are present in the inferior leads. PREVIOUS TRACING : 10/24/2017 05.46 DOCTOR: Sandro Martinez Interpretating Date/Time 10/31/2017 17:40:46
== END 2017-10-31 15:36 | disposition home or self-care (01) ==
LOC: NEPE 12:32
DX: R07.9 Chest pain, unspecified (principal); E03.9 Hypothyroidism, unspecified; E11.9 Type 2 diabetes mellitus without complications; E78.00 Pure hypercholesterolemia, unspecified; I10 Essential (primary) hypertension; I25.2 Old myocardial infarction; I25.10 Atherosclerotic heart disease of native coronary artery without angina pectoris; Z79.02 Long term (current) use of antithrombotics/antiplatelets; Z79.84 Long term (current) use of oral hypoglycemic drugs; Z79.899 Other long term (current) drug therapy
CPT/HCPCS: 71046; 71275; 80048; 82550; 82552; 83735; 84484; 85025; 85610; 85730; 93005; 99285; Q9967